=== PATIENT | female | born 1945 | race Caucasian/White ===

== ENCOUNTER 2018-10-10 16:41 | Observation (INO) ==
--- NOTE | 2018-10-10 16:57 | Emergency Department Note ---
Disposition Clinical Impression: OBRIEN (dyspnea on exertion), Hypoxia Disposition: Admitted As Inpatient Condition: Fair Referrals: NONE,PCP [Primary Care Provider] - Forms: ED Satisfaction Letter SOB HPI - General Chief Complaint: ED Shortness of Breath/Dyspnea Stated Complaint: SOB Source: EMS Mode of arrival: EMS Limitations: no limitations Nursing Notes Reviewed: Yes Vital Signs Reviewed: Yes - History of Present Illness Patient presents to the ED complaining of shortness of breath that is worse with exertion. States it has been developing over the past few days and got worse today so she went to the walk-in clinic to be evaluated. There she was found to have oxygen saturations of 80% on room air, was given a DuoNeb and EMS was called. Per EMS she was satting 97% on 2 L and lungs were clear. No additional medications were given. Patient states she has a chronic dry cough but it has not changed recently. She denies any chest pain. No fever or chills. She reports chronic lower extremity swelling and is on lasix but denies any history of CHF or recent change in her swelling. No nausea, vomiting, diarrhea or constipation. No URI symptoms. No urinary symptoms. She is not a smoker. She has a history of diabetes, high blood pressure, high cholesterol and hypothyroidism and does take insulin. She has never been a smoker. She denies any history of COPD, asthma or emphysema. On arrival here she is 93-94% on 2 L and is not in any distress. - Related Data Home Medications Medication Instructions Recorded Confirmed Albuterol Neb [Proventil Neb] 2.5 mg IH Q4HR 10/10/18 10/10/18 Alendronate Sodium [Fosamax] 70 mg PO QWEEK 10/10/18 10/10/18 Citalopram [CeleXA] 20 mg PO DAILY 10/10/18 10/10/18 Furosemide [Lasix] 20 mg PO DAILY 10/10/18 10/10/18 Gabapentin [Neurontin] 300 mg PO TID 10/10/18 10/10/18 Glimepiride [Amaryl] 4 mg PO BID 10/10/18 10/10/18 Insulin DETEMIR [Levemir Flextouch] 40 unit SQ DAILY 10/10/18 10/10/18 Levothyroxine [Synthroid] 100 mcg PO 0630 10/10/18 10/10/18 Metoprolol [Lopressor] 12.5 mg PO BID 10/10/18 10/10/18 Omeprazole [PriLOSEC] 20 mg PO BIDAC 10/10/18 10/10/18 OxyCODONE/APAP 10/325 [Percocet 1 each PO Q6HR PRN 10/10/18 10/10/18 10/325 MG] Pramipexole Di-HCl [Pramipexole 0.5 mg PO HS 10/10/18 10/10/18 Dihydrochloride] Pravastatin Sodium [Pravachol] 40 mg PO HS 10/10/18 10/10/18 Quetiapine Fumarate [SEROquel] 100 mg PO HS 10/10/18 10/10/18 hydroCHLOROthiazide 25 mg PO DAILY 10/10/18 10/10/18 [Hydrochlorothiazide] Allergies Allergy/AdvReac Type Severity Reaction Status Date / Time No Known Allergies Allergy Verified 03/23/16 12:02 Constitutional: Denies: fever, chills, weakness, weight change Eyes: Denies: eye pain, eye discharge, vision change ENT ED: Denies: ear pain, throat pain, dental pain, hearing loss, epistaxis, congestion, dysphagia Cardiovascular: Reports: as per HPI, dyspnea on exertion, edema. Denies: chest pain, palpitations, syncope Respiratory: Reports: cough (chronic, dry), dyspnea. Denies: wheezes, hemoptysis, stridor Gastrointestinal: Denies: abdominal pain, nausea, vomiting, diarrhea, constipation, hematemesis, melena, hematochezia Genitourinary: Denies: dysuria, frequency, hematuria, discharge Musculoskeletal: Denies: back pain, neck pain, arthralgia, myalgia Integumentary: Denies: rash, abrasion, lesions Neurological: Denies: headache, weakness, numbness, paresthesias, confusion, abnormal gait, vertigo Psychiatric: Denies: anxiety, depression, suicidal thoughts, homicidal thoughts, auditory hallucinations, visual hallucinations Endocrine: Denies: fatigue Hematological/Lymphatic: Denies: easy bleeding, easy bruising Allergic/Immunologic: Denies: facial swelling, urticaria Past Medical History - Past Medical History Medical history: Reports: arthritis, diabetes, hyperlipidemia, hypertension, renal disease, thyroid disease Psychiatric history: Reports: anxiety, depression [employer]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 - Social History Smoking Status: Never smoker Smokeless Tobacco Status: No Alcohol use: Reports: none Drug use: Reports: none Physical Exam - General Limitations: no limitations General appearance: alert, in no apparent distress, obese - Head Head exam: atraumatic, normocephalic, normal inspection - Eye Eye exam: Present: normal appearance, PERRL, EOMI - ENT ENT exam: normal exam, normal oropharynx, mucous membranes moist - Neck Neck exam: Present: normal inspection, full ROM, trachea midline - Chest Chest inspection: Present: normal inspection, symmetric chest wall rise - Respiratory Respiratory exam: Present: normal lung sounds bilaterally. Absent: respiratory distress, wheezes, accessory muscle use - Cardiovascular Cardiovascular exam: Present: regular rate, normal rhythm, normal heart sounds - Abdominal Exam Abdominal exam: Present: soft, Non-Tender. Absent: tenderness, distention, guarding, rebound, rigidity - Extremities Exam Extremities exam: Present: normal inspection, full ROM. Absent: tenderness, pedal edema (non-pitting) - Back Exam Back exam: Present: normal inspection, full ROM. Absent: tenderness - Neurological Exam Neurological exam: Present: alert, oriented X3 - Psychiatric Psychiatric exam: Present: normal affect, normal mood - Skin Skin exam: Present: warm, dry, intact, normal color Course Course Narrative: Patient presents to the ED complaining of worsening dyspnea on exertion over the past 2 days was found to be hypoxic on room air on outside facility. On arrival here she is afebrile, nontoxic in appearance and not in any distress. Oxygen saturations are 93-94% on room air currently. Physical exam is unremarkable with clear lung sounds. She has some nonpitting edema in the lower extremities but no evidence of fluid retention. Will obtain EKG, chest x-ray and lab work for further evaluation. - Reevaluation(s) Reevaluation #1: Chest x-ray shows low lung volumes and atelectasis but no pneumonia or pulmonary edema. EKG was unremarkable. Laboratory studies show some mild chronic kidney disease which is unchanged from previous. Troponin and BNP are both normal. Attempted to wean patient off oxygen she immediately desaturated into the 80s at rest after being taken off nasal cannula. Will obtain ABG and CT of chest for further evaluation. Reevaluation #2: Chest CT shows some old unchanged compression fractures but no acute pulmonary pathology. ABG shows only hypoxia with a normal pH. It is unclear why the patient is hypoxic at this time but a repeat attempt to wean her off oxygen was unsuccessful. She will require admission for further evaluation and will likely qualify need oxygen at home which will need to be further arranged. I spoke to the patient and she is in agreement. Will contact the hospitalist. Reevaluation #3: I spoke to the hospitalist on-call, Dr. Chapa who requested a d-dimer be performed. This was done and was within the normal range. I spoke to Dr. Chapa again and he was willing to accept the patient based on all of these results and workup. Patient is contained rest currently throughout her ED stay but does still report subjective dyspnea when she is up and moving around. Oxygen saturations remained in the mid 90s on 2 L with decreases into the 80s on room air. Vital Signs Temperature 97.8 F 10/10/18 16:44 Pulse Rate 87 10/10/18 16:44 Respiratory Rate 18 10/10/18 16:44 Blood Pressure 113/74 10/10/18 16:44 O2 Sat by Pulse Oximetry 93 10/10/18 16:44 Temperature 97.8 F 10/10/18 16:44 Pulse Rate 85 10/10/18 18:36 Respiratory Rate 20 10/10/18 18:36 Blood Pressure 113/78 10/10/18 18:36 O2 Sat by Pulse Oximetry 87 10/10/18 18:40 Oxygen Delivery Oxygen Delivery Room Air Shortness of Breath/Dyspnea - Differential Diagnosis Likely: acute exacerbation of chronic obstructive airways disease, congestive heart failure, pneumonia - Medical Records Medical records reviewed: Yes I reviewed the patient's medical records. - Lab Data Lab results reviewed: Yes I reviewed the patient's lab results. Result diagrams: 10/10/18 17:24 10/10/18 17:24 Lab Results 10/10/18 10/10/18 10/10/18 Range/Units 17:24 17:24 17:24 WBC 10.5 (4.3-11.1) K/mcL RBC 4.15 (3.82-4.97) M/mcL Hgb 12.0 (11.5-15.4) g/dL Hct 38.0 (35.3-44.9) % MCV 91.6 (83.0-100.0) fL MCH 28.9 (28.0-33.3) pg MCHC 31.6 (31.6-35.5) g/dL RDW 14.3 (11.5-14.5) % Plt Count 214 (140-400) K/mcL MPV 11.4 (9.4-12.4) fL Immature Gran % 0.8 (0-4) % Seg Neutrophils % 78.3 % Lymphocytes % 11.2 % Monocytes % 6.5 % Eosinophils % 2.8 % Basophils % 0.4 % Neutrophils # 8.2 (1.6-8.9) K/mcL Lymphocytes # 1.2 (0.6-4.6) K/mcL Monocytes # 0.7 (0.0-1.3) K/mcL Eosinophils # 0.3 (0.0-0.6) K/mcL Basophils # 0.0 (0.0-0.2) K/mcL PT 12.4 H (9.4-12.1) Seconds INR 1.1 APTT (26.0-36.0) Seconds D-Dimer (0-500) ng/mLFEU ABG pH (7.32-7.45) pH Units ABG pCO2 (35-45) mmHg ABG pO2 (85-104) mmHg ABG HCO3 (21-27) mEq/L ABG Total CO2 (20-26) mEq/L ABG O2 Saturation (95-98) % ABG Base Excess (-2 to 3) mEq/L Sodium 136 (136-145) mEq/L Potassium 4.1 (3.5-5.1) mEq/L Chloride 100 (98-107) mEq/L Carbon Dioxide 28 (23-29) mEq/L BUN 27 H (8-23) mg/dL Creatinine 1.63 H (0.60-1.20) mg/dL Est GFR ( Amer) 38 L (> 60) Est GFR (Non-Af Amer) 31 L (> 60) BUN/Creatinine Ratio 17 (6-26) Glucose 227 H (70-105) mg/dL Calculated Osmolality 294 (280-300) Calcium 8.9 (8.6-10.3) mg/dL Troponin I < 0.03 (< 0.04) ng/mL B-Natriuretic Peptide (Less than 100) pg/mL 10/10/18 10/10/18 10/10/18 Range/Units 17:24 17:24 17:24 WBC (4.3-11.1) K/mcL RBC (3.82-4.97) M/mcL Hgb (11.5-15.4) g/dL Hct (35.3-44.9) % MCV (83.0-100.0) fL MCH (28.0-33.3) pg MCHC (31.6-35.5) g/dL RDW (11.5-14.5) % Plt Count (140-400) K/mcL MPV (9.4-12.4) fL Immature Gran % (0-4) % Seg Neutrophils % % Lymphocytes % % Monocytes % % Eosinophils % % Basophils % % Neutrophils # (1.6-8.9) K/mcL Lymphocytes # (0.6-4.6) K/mcL Monocytes # (0.0-1.3) K/mcL Eosinophils # (0.0-0.6) K/mcL Basophils # (0.0-0.2) K/mcL PT (9.4-12.1) Seconds INR APTT 31.9 (26.0-36.0) Seconds D-Dimer 466 (0-500) ng/mLFEU ABG pH (7.32-7.45) pH Units ABG pCO2 (35-45) mmHg ABG pO2 (85-104) mmHg ABG HCO3 (21-27) mEq/L ABG Total CO2 (20-26) mEq/L ABG O2 Saturation (95-98) % ABG Base Excess (-2 to 3) mEq/L Sodium (136-145) mEq/L Potassium (3.5-5.1) mEq/L Chloride (98-107) mEq/L Carbon Dioxide (23-29) mEq/L BUN (8-23) mg/dL Creatinine (0.60-1.20) mg/dL Est GFR ( Amer) (> 60) Est GFR (Non-Af Amer) (> 60) BUN/Creatinine Ratio (6-26) Glucose (70-105) mg/dL Calculated Osmolality (280-300) Calcium (8.6-10.3) mg/dL Troponin I (< 0.04) ng/mL B-Natriuretic Peptide 19 (Less than 100) pg/mL 10/10/18 Range/Units 19:02 WBC (4.3-11.1) K/mcL RBC (3.82-4.97) M/mcL Hgb (11.5-15.4) g/dL Hct (35.3-44.9) % MCV (83.0-100.0) fL MCH (28.0-33.3) pg MCHC (31.6-35.5) g/dL RDW (11.5-14.5) % Plt Count (140-400) K/mcL MPV (9.4-12.4) fL Immature Gran % (0-4) % Seg Neutrophils % % Lymphocytes % % Monocytes % % Eosinophils % % Basophils % % Neutrophils # (1.6-8.9) K/mcL Lymphocytes # (0.6-4.6) K/mcL Monocytes # (0.0-1.3) K/mcL Eosinophils # (0.0-0.6) K/mcL Basophils # (0.0-0.2) K/mcL PT (9.4-12.1) Seconds INR APTT (26.0-36.0) Seconds D-Dimer (0-500) ng/mLFEU ABG pH 7.43 (7.32-7.45) pH Units ABG pCO2 40 (35-45) mmHg ABG pO2 71 L (85-104) mmHg ABG HCO3 27 (21-27) mEq/L ABG Total CO2 28 H (20-26) mEq/L ABG O2 Saturation 95 (95-98) % ABG Base Excess 2 (-2 to 3) mEq/L Sodium (136-145) mEq/L Potassium (3.5-5.1) mEq/L Chloride (98-107) mEq/L Carbon Dioxide (23-29) mEq/L BUN (8-23) mg/dL Creatinine (0.60-1.20) mg/dL Est GFR ( Amer) (> 60) Est GFR (Non-Af Amer) (> 60) BUN/Creatinine Ratio (6-26) Glucose (70-105) mg/dL Calculated Osmolality (280-300) Calcium (8.6-10.3) mg/dL Troponin I (< 0.04) ng/mL B-Natriuretic Peptide (Less than 100) pg/mL - Radiology Data Radiology results reviewed: Yes I reviewed the patient's radiology results. ITS Impressions Chest X-Ray 10/10/18 17:16 IMPRESSION: Limited chest with low lung volumes. Mild bibasilar atelectasis. D/ / Sean Trevino MD / Sean Trevino MD Interpreting Provider: Sean Trevino MD Impressions Chest X-Ray 10/10/18 17:16 IMPRESSION: Limited chest with low lung volumes. Mild bibasilar atelectasis. D/ / Sean Trevino MD / Sean Trevino MD Interpreting Provider: Sean Trevino MD Chest CT 10/10/18 19:20 IMPRESSION: Very mild dependent atelectasis. Central airways are clear. Remote compression deformities of T6, T8, and T9. D/ / Eva Garduno MD / Eva Garduno MD Interpreting Provider: Eva Garduno MD - EKG Data EKG attestation: Yes I reviewed and interpreted this EKG. EKG shows normal: Reports: sinus rhythm Rate: Reports: normal Rhythm: Reports: NSR Warren/QRS: Reports: normal Voltage: Reports: decreased voltage throughout Interpretation: Reports: no acute changes
[2018-10-10 17:30] LABS: Basophils % 0.4 %; Eosinophils # 0.3 K/mcL (0.0-0.6); Eosinophils % 2.8 %; Immature Granulocytes % 0.8 % (0-4); Lymphocytes # 1.2 K/mcL (0.6-4.6); Lymphocytes % 11.2 %; Mean Corpuscular HGB Conc 31.6 g/dL (31.6-35.5); Mean Corpuscular Hemoglobin 28.9 pg (28.0-33.3); Mean Corpuscular Volume 91.6 fL (83.0-100.0); Mean Platelet Volume 11.4 fL (9.4-12.4); Monocytes # 0.7 K/mcL (0.0-1.3); Monocytes % 6.5 %; Neutrophils # 8.2 K/mcL (1.6-8.9); Platelet Count 214 K/mcL (140-400); Red Blood Count 4.15 M/mcL (3.82-4.97); Red Cell Distribution Width 14.3 % (11.5-14.5); Segmented Neutrophils % 78.3 %
[2018-10-10 17:45] LABS: BUN/Creatinine Ratio 17 (6-26); Blood Urea Nitrogen 27 mg/dL (8-23); Calcium 8.9 mg/dL (8.6-10.3); Carbon Dioxide 28 mEq/L (23-29); Chloride 100 mEq/L (98-107); Glucose 227 mg/dL (70-105); INR 1.1; Osmolality,Calculated 294 (280-300); Potassium 4.1 mEq/L (3.5-5.1); Prothrombin Time 12.4 Seconds (9.4-12.1); Sodium 136 mEq/L (136-145); eGFR For Non-African Americans 31 (> 60)
[2018-10-10 17:51] LABS: Troponin I < 0.03 ng/mL (< 0.04)
[2018-10-10 19:07] LABS: ABG Base Excess 2 mEq/L (-2 to 3); ABG HCO3 27 mEq/L (21-27); ABG Oxygen Saturation 95 % (95-98); ABG PCO2 40 mmHg (35-45); ABG PH 7.43 pH Units (7.32-7.45); ABG PO2 71 mmHg (85-104); ABG TCO2 28 mEq/L (20-26)
[2018-10-10] MEDS ORDERED: Naloxone 0.4 MG/ML INJ IVP PRN ×2 (21:31→22:25)
[2018-10-10] MEDS ORDERED: Dextrose Gel 15 GM/37.5 ML TUBE PO PRN ×4 (21:33→22:25)
[2018-10-10] MEDS ORDERED: D5% in Water 1,000 ML IVC PRN ×2 (21:33→22:25)
[2018-10-10] MEDS ORDERED: *HR* Dextrose 50 % in Water (Syg) 50 ML SYRINGE IVP PRN ×2 (21:33→22:25)
[2018-10-10] MEDS ORDERED: *HR* OxyCODONE/APAP 10/325 TABLET PO PRN (22:25)
[2018-10-11] MEDS: Albuterol 2.5 MG/3 ML NEBULIZER IH SCH ×4 (01:15→11:25)
[2018-10-11] MEDS ORDERED: Insulin LISPRO 300 UNITS/3 ML VIAL SQ SCH ×3 (07:30→21:00)
[2018-10-11] MEDS: Insulin LISPRO 300 UNITS/3 ML VIAL SQ SCH ×2 (08:34→13:07)
[2018-10-11] MEDS ORDERED: Insulin DETEMIR 100 UNIT/ML X5UNITS SQ SCH (09:00)
[2018-10-11] MEDS ORDERED: *HR* Glimepiride 4 MG TABLET PO SCH (09:00)
[2018-10-11] MEDS ORDERED: Furosemide 20 MG TABLET PO SCH (09:00)
[2018-10-11] MEDS ORDERED: Gabapentin 300 MG CAPSULE PO SCH (09:00)
[2018-10-11] MEDS ORDERED: hydroCHLOROthiazide 25 MG TABLET PO SCH (09:00)
[2018-10-11 11:04] VITALS: BP 117/72
--- NOTE | 2018-10-11 11:24 | Internal Med History&Physical ---
Addendum entered and electronically signed by Xiang Chapa MD 10/11/18 11:51: I have personally performed a face to face evaluation on this patient. I have r eviewed and agree with the care plan. History and Exam by me shows: patient was admitted her her new primary care physician, yesterday, for the first time. In the office, apparently her oxygen saturation fell to 80% in 10 to normalize after breathing treatment. This reason she was transported by squad to the emergency department. There, she underwent CT scanning, d-dimer, BMP, other evaluations and while she improved symptomatically in terms of oxygen saturation she did not resolve. The patient admits to cough and respiratory distress intermittently for the last 2 days. Actually, cough has been there for 6 months and is especially worse in the morning. Patient denies fevers chills sweats sputum production chest pain, etc. She does admit to lightheadedness and dizziness but no syncope or presyncope. On further questioning, the patient has sleep apnea which was diagnosed about 3 years ago and when she moved about a year ago she quit using her CPAP. The patient states that about 6 months ago her morning cough worsened and she has not been feeling well. I discussed this length with her. She understands the need to resume her CPAP nightly and that this can have an effect on her overall health including diabetes, heart, reflux, cough, etc. If the symptoms persist, ask her to evaluate with her primary care physician. However, she is to begin using CPAP at home, immediately. She does not want to stay even though she is still desaturating here and we discussed home oxygen therapy for at least a couple of weeks. She feels like she needs to return home, today. She has no known allergies and we reviewed her medication list. She has reflux for which she takes omeprazole, mild Parkinson's for which she takes Mirapex, hypertension treated with hydrochlorothiazide and metipranolol. However, she also has mild edema in the hydrochlorothiazide is for this. She has diabetes and uses glyburide and Levemir 40 units daily for same. She is on alendronate for osteoporosis and chronic low back pain. She takes gabapentin for the latter, as well. She is depressed and admits to using antidepressants for same. This is present since her last February. Surgeries included a complete hysterectomy, her right hip, gallbladder. He has never been a smoker nor has she been diagnosed with COPD. She does not drink alcohol or beer and lives alone. She has no children and the only relative is a [id number] who is planning to common stay with her for the next couple of weeks. 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 She has only a few teeth left. Patient has no complaint of chest discomfort, dyspnea, orthopnea, palpitations, nausea or vomiting, constipation or diarrhea, other changes in bowel habits, difficulty with urination, rash or itching, or other new complaints, except as mentioned above. Review of systems is otherwise negative. Examination: (Except as mentioned above): General: In no apparent distress, alert and oriented 3. Head: Atraumatic and normocephalic. Eyes: Extraocular muscles are intact, pupils equal round and reactive to light and accommodation. Sclerae anicteric. Ears: External ears are normal to inspection and hearing is grossly normal. Nose: Patent without lesion noted. Mouth: No intraoral lesions seen. Dentition is remarkable for mandibular fragments, only. Neck: Supple with trachea midline. There is no thyromegaly or adenopathy and carotids are 2+ without bruit heard. Respiratory: No use of accessory muscles. Lungs have minimal wheezing, throughout. No egophony or signs of consolidation. Normal airflow. Cardiovascular: Regular rate and rhythm without murmur appreciated. Abdomen: Bowel sounds are normal. No hepatosplenomegaly masses or tenderness. Morbidly obese and therefore difficult to palpate deeply. Extremities: No cyanosis or clubbing but does have 2+ pitting edema, bila terally. No cord or calf tenderness. Neurological: A and O 3. Cranial nerves II through XII are intact. No focal deficits and no abnormal movements or postures. Skin: Warm and non-diaphoretic with healed erythematous areas, especially at the right baez.. Breasts, pelvic and rectal: Not examined. at patient's insistence, will discharge with home O2 if she requires oxygen for saturation. She again will begin to use CPAP and will follow up with her primary care physician in about a week. Original Note: Date of Encounter: 10/11/18 Time of Encounter: 11:20 Assessment and Plan (1) Hypoxia Current visit: Yes Status: Acute Patient presented to emergency department with complaints of dyspnea and hypoxia. Patient apparently was seen at her PCP and presented with a oxygen saturation in the 80s which did not improve after a nebulizer treatment in the office. Patient was evaluated in the emergency department after being placed on oxygen and given further bronchodilators. Patient saturation increased to the 90s. Initial diagnostic exams of chest x-ray and CAT scan showed no acute issues. Patient today states that her respiratory effort has much improved but continues to have oxygen dependency. Patient is oxygen was originally at 2 L/m and has been weaned to room air. Patient did not desaturate while at rest to 88% on room air. Lungs continue to have moderate pulmonary congestion. Patient has been requested to be discharged home. We will repeat patient's chest x-ray for today and discuss further with Dr. Chapa. (2) Diabetes Current visit: Yes Status: Chronic No acute issues. Patient continues on her Levemir and an established home dosing. Will continue patient's home medications and continue to monitor with f ingersticks. 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 Patient states history of Parkinson's disease. No other acute neurological changes noted. We will continue with current home medications. (4) Hypertension Current visit: Yes Status: Chronic Vital signs are stable. We will continue with current home medications. Qualifiers: Hypertension type: essential hypertension Qualified Code(s): I10 - Essential (primary) hypertension (5) Chronic kidney disease Current visit: Yes Status: Chronic No acute issues. Patient's admission creatinine was 1.63. We will continue to monitor with serial labs. Qualifiers: Chronic kidney disease stage: stage 3 (moderate) Qualified Code(s): N18.3 - Chronic kidney disease, stage 3 (moderate) Internal Medicine - H&P: HPI Chief complaint: shortness of breath Admitted From: Home Plans for Post Hospital Care: Home History of present illness: Ms. Ramos is a 72 year old female, who presented to the ED complaining of shortness of breath that is worse with exertion. She states that this has been developing over the past several days and got worse yesterday so she went to the walk-in clinic to be evaluated. There she was found to have oxygen saturations of 80% on room air, was given a DuoNeb and EMS was called. Was placed on oxygen medical records show patient's saturation remained greater than 90% on 2 L. 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 Had a chest x-ray and a chest CT that was performed which shows no acute process. Patient states that she has been diagnosed with sleep apnea before in the past and does have a CPAP at home but after a recent move, she has not used her CPAP in over the past year. Patient's respiratory effort improved while in the emergency department with use of bronchodilators and oxygen, so she was admitted to medical floor overnight for further evaluation. Patient states that her breathing is much improved this morning and has been requested to be discharged to home. Patient noted to continue to have oxygen dependence. Patient currently on oxygen at 2 L, which has been weaned to room air, but patient again desaturated to 88% on room air while at rest. Patient currently denies any dyspnea or productive cough. Denies any chest discomforts or palpitations. Past Med Surg Social Fam HX - Past Medical History Medical history: arthritis, diabetes, hyperlipidemia, hypertension, renal disease, thyroid disease Additional medical history: parkinsons Psychiatric history: anxiety, depression - Past Surgical History Surgical History: hysterectomy Additional surgical history: Hip surgery. - Social History Smoking Status: Never smoker Smokeless Tobacco Status: No Alcohol use: none Drug use: none - Family History Mother Hx Family Cardiac Disorders: Yes Father Hx Family Cancer: Yes (Leukemia) Internal Medicine - H&P: Meds Albuterol Neb [Proventil Neb] 2.5 mg IH Q4HR 10/10/18 [History] Alendronate Sodium [Fosamax] 70 mg PO QWEEK 10/10/18 [History] Citalopram [CeleXA] 20 mg PO DAILY 10/10/18 [History] Furosemide [Lasix] 20 mg PO DAILY 10/10/18 [History] Gabapentin [Neurontin] 300 mg PO TID 10/10/18 [History] Glimepiride [Amaryl] 4 mg PO BID 10/10/18 [History] Insulin DETEMIR [Levemir Flextouch] 40 unit SQ DAILY 10/10/18 [History] Levothyroxine [Synthroid] 100 mcg PO 0630 10/10/18 [History] Metoprolol [Lopressor] 12.5 mg PO BID 10/10/18 [History] Omeprazole [PriLOSEC] 20 mg PO BIDAC 10/10/18 [History] OxyCODONE/APAP 10/325 [Percocet 10/325 MG] 1 each PO Q6HR PRN 10/10/18 [History] Pramipexole Di-HCl [Pramipexole Dihydrochloride] 0.5 mg PO HS 10/10/18 [History] Pravastatin Sodium [Pravachol] 40 mg PO HS 10/10/18 [History] Quetiapine Fumarate [SEROquel] 100 mg PO HS 10/10/18 [History] hydroCHLOROthiazide [Hydrochlorothiazide] 25 mg PO DAILY 10/10/18 [History] Allergy/AdvReac Type Severity Reaction Status Date / Time No Known Allergies Allergy Verified 03/23/16 12:02 All Systems PM: A 10-system review of systems was performed and is negative for pertinent findings except as documented above in the HPI. - Constitutional Constitutional: as per HPI, no chills, no fever(s), no night sweats - EENT Eyes: as per HPI, no change in vision, no discharge, no pain, no photophobia Ears: no ear discharge, no ear pain, no tinnitus Nose, mouth and throat: no dysphagia, no nasal discharge, no neck pain, no sore throat - Cardiovascular Cardiovascular ROS IM: as per HPI, no chest pain, no diaphoresis, no dyspnea, no lightheadedness, no palpitations, no syncope - Respiratory Respiratory: as per HPI, no cough, no dyspnea, no wheezing, no excessive phlegm production - Gastrointestinal Gastrointestinal: as per HPI, no abdominal pain, no diarrhea, no hematemesis, no hematochezia, no melena, no nausea, no vomiting - Genitourinary Genitourinary: as per HPI, no change in urinary stream, no dysuria, no flank pain, no hematuria - Musculoskeletal Musculoskeletal ROS IM: as per HPI, no numbness, no tingling - Integumentary Integumentary IM: as per HPI, no rash, no unusual bruising - Neurological Neurological ROS: no confusion, no convulsions, no focal weakness, no numbness, no tingling, no tremor(s) - Hematologic/Lymphatic Hematologic/Lymphatic: no easy bruising - Constitutional Vitals: Temp Pulse Resp BP Pulse Ox 97.6 F 82 16 117/72 95 10/11/18 11:00 10/11/18 11:00 10/11/18 11:00 10/11/18 11:00 10/11/18 11:00 General appearance: Present: A&O X 3, pleasant - Head Head exam: Present: atraumatic, normocephalic - Eye Eye exam: Present: PERRL, conjuntiva pink, sclera anicteric Pupils: Present: PERRL - Neck Neck exam general surgery: Present: supple, trachea midline. Absent: lymphadenopathy - Respiratory Respiratory exam: Present: CTAB, rales, rhonchi. Absent: accessory muscle use Additional comments: Patient noted to have rhonchi and a very slight expiratory wheeze fto upper chang and scattered fine rales heard throughout basilar chang. Respiratory effort peers relaxed. She with a dry cough noted. - Cardiovascular Cardiovascular exam: Present: RRR, +S1, +S2. Absent: diastolic murmur, gallop, rubs, systolic murmur - GI/Abdominal GI/Abdominal exam: Present: normal bowel sounds, soft, no peritoneal signs. Absent: distended, tenderness - Extremities Exam Extremities exam: Present: pedal edema, warm, radial pulses palpable and symmetrical. Absent: calf tenderness, cyanotic Additional comments: Slight nonpitting edema to bilateral lower legs. - Neurological Exam Neurological exam: Present: CN II-XII intact, oriented X3. Absent: pronater dri ft, facial droop, speech deficit Additional comments: Patient noted with a essential tremor. - Skin Skin exam: Present: dry, intact Internal Med - H&P Results - Labs CBC & Chem 7: 10/10/18 17:24 10/10/18 17:24 Labs: Short CBC 10/10/18 Range/Units 17:24 WBC 10.5 (4.3-11.1) K/mcL Hgb 12.0 (11.5-15.4) g/dL Hct 38.0 (35.3-44.9) % Plt Count 214 (140-400) K/mcL Neutrophils # 8.2 (1.6-8.9) K/mcL BMP 10/10/18 17:24 Sodium 136 Potassium 4.1 Chloride 100 Carbon Dioxide 28 BUN 27 H Creatinine 1.63 H Glucose 227 H Calcium 8.9 Cardiac Enzymes 10/10/18 Range/Units 17:24 Troponin I < 0.03 (< 0.04) ng/mL - ABG Interpretation ABG results: 10/10/18 19:02 ABG pH 7.43 ABG pCO2 40 ABG pO2 71 L ABG HCO3 27 ABG Total CO2 28 H ABG O2 Saturation 95 ABG Base Excess 2 - Impressions ITS Impressions Chest X-Ray 10/10/18 17:16 IMPRESSION: Limited chest with low lung volumes. Mild bibasilar atelectasis. D/ / Sean Trevino MD / Sean Trevino MD Interpreting Provider: Sean Trevino MD Chest CT 10/10/18 19:20 IMPRESSION: Very mild dependent atelectasis. Central airways are clear. Remote compression deformities of T6, T8, and T9. D/ / Eva Garduno MD / Eva Garduno MD Interpreting Provider: Eva Garduno MD - VTE Reasons for not Prescribing Prophylaxis: Treatment not Indicated - Low risk for VTE
--- NOTE | 2018-10-11 12:08 | Discharge Summary ---
Addendum entered and electronically signed by Xiang Chapa MD 10/11/18 12:22: I have personally performed a face to face evaluation on this patient. I have r eviewed and agree with the care plan. History and Exam by me shows: Please see my H&P, this date. Original Note: Orders not resulted at time of discharge: Pending orders 10/10/18 17:16 ECG 12 lead ECG [ECG] Stat Date of Encounter: 10/11/18 Time of Encounter: 12:04 - Discharge Diagnosis (1) Hypoxia Priority: Primary Status: Acute Comments: Patient presented to emergency department from her PCP office, being transferred after being treated for complaints of dyspnea with hypoxia. Patient reportedly had oxygen saturations in the 80s while at her PCP office, which corrected after presented to emergency department having supplemental oxygen and bronchodilators. Patient had diagnostic workup which included chest x-ray and a chest CT which showed no acute process. Patient's respiratory effort improved overnight and today patient is requesting discharge to home. Patient continues to be oxygen dependent, having her saturations decreased to 88% while at rest on room air. Patient currently denies any dyspnea. Patient does continue with a dry cough which she states been present mostly in the mornings over the past several months. Patient also related that she has been diagnosed with sleep apnea before in the past and has a CPAP that she uses at home but has been noncompliant with that over the past year. Patient will be discharged home with oxygen and recommendations of follow-up with her PCP within the week for further evaluation and management. Patient is to continue oxygen at 2 L. Patient was instructed to continue use of CPAP when at home (2) Diabetes Priority: Secondary Status: Chronic Comments: No acute issues during her stay at this facility. Patient continues on home medication and is recommended to continue on home medications after discharge. Patient instructed follow-up with PCP within one week. 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 Patient continues with tremors to bilateral upper extremities. Patient continued on home medications during her stay and is recommended to continue these medications after discharge. Patient is to follow-up with PCP. (4) Hypertension Priority: Secondary Status: Chronic Comments: Vital signs remained stable during her stay at this facility. Patient is re commended to continue with home medications after discharge and follow-up with PCP for further management Qualifiers: Hypertension type: essential hypertension Qualified Code(s): I10 - Essential (primary) hypertension (5) Chronic kidney disease Priority: Secondary Status: Chronic Comments: No acute issues. Patient's creatinine was 1.65 on admission. Patient is continue with home medications and follow-up with PCP Qualifiers: Chronic kidney disease stage: stage 3 (moderate) Qualified Code(s): N18.3 - Chronic kidney disease, stage 3 (moderate) Hospital course: Ms. Ramos is a 72 year old female , who presented to the emergency department as transfer from her PCP office. Patient reportedly presented to her PCP with complaints of dyspnea and a dry cough. Patient was noted to have an oxygen saturation in the 80s while at her PCP and was transferred to the emergency department. Patient was placed on supplemental oxygen and given bronchodilators while in the emergency and was noted to have increase in her oxygen saturation to the 90s. Patient had multiple diagnostic exams performed to include chest x- ray and a chest CT which all showed negative. Patient was admitted overnight and continued on bronchodilators and states that her history effort has improved this morning and is requesting to be discharged. Noted to continue to be oxygen dependent, with desaturations to the 80s while on room air. Patient recommended to continue her stay for further evaluation but currently is refusing stated she would rather be discharged home and follow-up with her PCP. Patient had related that she also has is dry cough that has been present over the past several months and primarily occurs in the early mornings. Patient also relates that she has been diagnosed with sleep apnea before in the past, but has been noncompliant with the use of her CPAP over the past year. Patient denies any chest discomforts or palpitations. Patient denies any fever/chills. Patient was given instruction to follow up with her PCP for further evaluation and management. Patient is be in discharge with arrangements being made for her to have oxygen at home. Patient will be discharged with a prescription for Levaquin 500 mg for bronchitis, to be taken for the next 7 days. He lives alone but states that she has a [id number] that has made arrangements to come and stay with her for the next several weeks during her recovery. Discharge discussed with: patient Time spent discussing smoking cessation with patient: 3 to 10 minutes - Time Spent with Patient Total time spent providing and/or coordinating discharge services: Less than 30 minutes - Discharge Medications Home Medications: Albuterol Neb [Proventil Neb] 2.5 mg IH Q4HR 10/10/18 [History] Alendronate Sodium [Fosamax] 70 mg PO QWEEK 10/10/18 [History] Citalopram [CeleXA] 20 mg PO DAILY 10/10/18 [History] Furosemide [Lasix] 20 mg PO DAILY 10/10/18 [History] Gabapentin [Neurontin] 300 mg PO TID 10/10/18 [History] Glimepiride [Amaryl] 4 mg PO BID 10/10/18 [History] Insulin DETEMIR [Levemir Flextouch] 40 unit SQ DAILY 10/10/18 [History] Levothyroxine [Synthroid] 100 mcg PO 0630 10/10/18 [History] Metoprolol [Lopressor] 12.5 mg PO BID 10/10/18 [History] Omeprazole [PriLOSEC] 20 mg PO BIDAC 10/10/18 [History] OxyCODONE/APAP 10/325 [Percocet 10/325 MG] 1 each PO Q6HR PRN 10/10/18 [History] Pramipexole Di-HCl [Pramipexole Dihydrochloride] 0.5 mg PO HS 10/10/18 [History] Pravastatin Sodium [Pravachol] 40 mg PO HS 10/10/18 [History] Quetiapine Fumarate [SEROquel] 100 mg PO HS 10/10/18 [History] hydroCHLOROthiazide [Hydrochlorothiazide] 25 mg PO DAILY 10/10/18 [History] Allergies/Adverse Reactions: Allergy/AdvReac Type Severity Reaction Status Date / Time No Known Allergies Allergy Verified 03/23/16 12:02 Date of admission: 10/10/18 21:48 Primary care physician: PCP NONE Discharging clinician: Xiang Chapa - Constitutional Vitals: Temp Pulse Resp BP Pulse Ox 97.6 F 82 20 117/72 94 10/11/18 11:00 10/11/18 11:00 10/11/18 11:25 10/11/18 11:00 10/11/18 11:25 General appearance: Present: A&O X 3, pleasant - Head Head exam: Present: atraumatic, normocephalic - Eye Eye exam: Present: PERRL, conjuntiva pink, sclera anicteric Pupils: Present: PERRL - Neck Neck exam general surgery: Present: supple, trachea midline. Absent: lymphadenopathy - Respiratory Respiratory exam: Present: CTAB. Absent: accessory muscle use, rales, rhonchi, wheezes Additional comments: Lungs noted to have scattered rhonchi and slight expiratory wheeze her to upper chang and fine basilar rales. Respiratory effort appears relaxed and rest. No productive cough noted. - Cardiovascular Cardiovascular exam: Present: RRR, +S1, +S2. Absent: diastolic murmur, gallop, rubs, systolic murmur - GI/Abdominal GI/Abdominal exam: Present: normal bowel sounds, soft, no peritoneal signs. Absent: distended, tenderness - Extremities Exam Extremities exam: Present: pedal edema, warm, radial pulses palpable and symmetrical. Absent: calf tenderness, cyanotic - Neurological Exam Neurological exam: Present: CN II-XII intact, oriented X3, no focal deficits. Absent: pronater drift, facial droop, speech deficit - Skin Skin exam: Present: dry, intact - Patient Status Disposition: Home, Self-Care Condition: Good Functional capacity at discharge: uses cane/walker Overall status at discharge: patient is progressing back to baseline - Discharge Instructions Follow Up With: NONE,PCP [Primary Care Provider] - - Diet and Activity Activity: increase activity as tolerated Diet: diabetic diet, low fat, low cholesterol, low salt diet - VTE Reasons for not Prescribing Prophylaxis: Treatment not Indicated - Low risk for VTE
--- NOTE | 2018-10-11 16:01 | Electrocardiograph Report ---
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
== END 2018-10-11 15:35 | disposition home or self-care (01) ==
LOC: EMEROOGRE 16:41 → INPGRE 16:41